=== PATIENT | male | born 1995 | race Caucasian/White ===

== ENCOUNTER 2016-12-09 15:09 | Emergency (ER) | payer OTHER ==
[~2016-12-09] VITALS: Ht 188 cm; Wt 99.8 kg
[2016-12-09 15:09] VITALS: BP 149/70
[2016-12-09] MEDS ORDERED: KETOROLAC 30 MG/ML VIAL (J1885) IV ONE (16:15)
[2016-12-09] MEDS ORDERED: NS 1,000 ML IV ONE (16:15)
[2016-12-09 16:41] LABS: BASO % 0.6 % (0.0-1.0); EOS # 0.2 K/mm3 (0.0-0.50); EOS % 3.3 % (0.0-3.0); LARGE UNSTAINED CELL # 0.1 K/mm3 (0.0-0.4); LARGE UNSTAINED CELL % 2.6 % (0.0-4.0); LYMPH # 1.2 K/mm3 (1.5-6.5); LYMPH % 20.9 % (24.0-44.0); MEAN CORPUSCULAR HGB CONC 34.3 g/dl (32.0-36.5); MEAN CORPUSCULAR VOLUME 87.6 fl (80.0-96.0); MONO # 0.3 K/mm3 (0.0-0.8); MONO % 5.8 % (0.0-5.0); NEUTROPHILS # 3.7 K/mm3 (1.8-7.7); NEUTROPHILS % 66.8 % (36.0-66.0); PLATELET COUNT, AUTOMATED 219 k/mm3 (150-450); RED CELL DISTRIBUTION WIDTH 12.1 % (11.5-14.5); WHITE BLOOD COUNT 5.5 K/mm3 (4.0-10.0)
--- NOTE | 2016-12-09 16:42 | REP ---
Clinical: Chest pain . Comparison: None . Technique: PA and lateral. Findings: The mediastinum and cardiac silhouette are normal. The lung adrian are clear and without acute consolidation, effusion, or pneumothorax. The skeletal structures are intact and normal. Impression: 1. No acute cardiopulmonary process. Signed by Anshu Tompkins MD 12/09/2016 04:34 P
[2016-12-09 17:03] LABS: ALBUMIN/GLOBULIN RATIO 1.08 (1.00-1.93); ALKALINE PHOSPHATASE 74 U/L (45-117); ALT/SGPT 26 U/L (12-78); ANION GAP 7 MEQ/L (8-16); AST/SGOT 13 U/L (15-37); BILIRUBIN,DIRECT 0.2 MG/DL (0.0-0.2); BILIRUBIN,TOTAL 0.7 MG/DL (0.2-1.0); BLOOD UREA NITROGEN 7 MG/DL (7-18); CALCIUM LEVEL 8.9 MG/DL (8.5-10.1); CARBON DIOXIDE LEVEL 29 MEQ/L (21-32); CHLORIDE LEVEL 103 MEQ/L (98-107); CREATININE FOR GFR 0.97 MG/DL (0.70-1.30); GLOMERULAR FILTRATION RATE > 60.0 (>60); GLUCOSE, FASTING 86 MG/DL (70-105); POTASSIUM SERUM 4.2 MEQ/L (3.5-5.1); SODIUM LEVEL 139 MEQ/L (136-145); TOTAL PROTEIN 7.7 GM/DL (6.4-8.2)
[2016-12-09] MEDS ORDERED: ZANT300T PO (17:15)
[2016-12-09] MEDS ORDERED: NAPR500T PO (17:15)
--- NOTE | 2016-12-10 09:23 | ECGEPIP ---
Stationary ECG Study [facility] - ED Test Date: 2016-12-09 Pat Name: GIANNA KERN Department: Room: - Gender: M [employer]: ct : 1995 Requested By: Trina Mendez Order Number: [id number] Reading MD: Live Soares Measurements Intervals [place] Rate: 70 P: 41 VA: 170 QRS: 32 QRSD: 101 T: 26 QT: 377 QTc: 409 Interpretive Statements SINUS RHYTHM NO PRIORS Electronically Signed On 12-10-2016 9:22:47 EDT by Live Soares
== END 2016-12-09 17:27 | disposition home or self-care (01) ==
LOC: M ED 16:42
DX: R07.89 Other chest pain (principal)
CPT/HCPCS: 71020; 80048; 80076; 82550; 82553; 83690; 84443; 85025; 93005; 96374; 99283; J1885